=== PATIENT | male | born 1995 | race Caucasian/White ===

== ENCOUNTER 2018-07-03 23:44 | Emergency (ER) | payer SELFPAY ==
[2018-07-04] MEDS ORDERED: Famotidine IV* 10 MG/ML 2 ML (20 mg) IV SLOW PU ONE (00:16)
[2018-07-04] MEDS ORDERED: Ondansetron INJ* 2 MG/ML VIAL IV ONE (00:16)
[2018-07-04] MEDS ORDERED: NS 0.9% 1000 ML** 1,000 ML IV ONE (00:16)
--- NOTE | 2018-07-04 00:24 | ED ---
Complex/Multi-Sys Presentation - HPI Summary HPI Summary: 23-year-old male brought in by paramedics for complaint of possible overdose. They were called to the scene to find a patient unresponsive and affect neck with O2 sats around 30%. They provided 2 doses of Narcan with abrupt awakening. The patient is said nausea and vomiting since. He has regained normal consciousness and is alert and oriented on arrival to the ER. He had some confusion prior to this. He tells us that he had been drinking alcohol and used Xanax that he had obtained off the street. He states he does not normally do things like this that he normally uses cocaine instead. He denies any headache, chest pain or difficulty breathing. He reports persistent nausea and vomiting. He is able to move all his extremities normally. - History Of Current Complaint Chief Complaint: EDOverdose Time Seen by Provider: 07/03/18 23:55 Hx Obtained From: Patient, EMS Onset/Duration: Still Present Timing: Minutes Severity Currently: Mild Severity Initially: Severe Aggravating Factor(s): nothing Alleviating Factor(s): narcan Associated Signs And Symptoms: Positive: Nausea, Vomiting. Negative: Headache, Chest Pain, Abdominal Pain - Allergies/Home Medications Allergies/Adverse Reactions: Allergies Allergy/AdvReac Type Severity Reaction Status Date / Time No Known Allergies Allergy Verified 07/04/18 00:03 Home Medications: Home Medications NK [No Home Medications Reported] 07/04/18 [History Confirmed 07/04/18] PMH/Surg Hx/FS Hx/Imm Hx Psychiatric History: Reports: Hx Substance Abuse - Alexis. Infectious Disease History: No Infectious Disease History: Denies: Traveled Outside the [place] in Last 30 Days - Family History Known Family History: Positive: Non-Contributory - Social History Alcohol Use: Daily Substance Use Type: Reports: Cocaine, Heroin, Marijuana Smoking Status (MU): Heavy Every Day Tobacco Smoker Review of Systems Positive: Chills Eyes: Negative Cardiovascular: Negative Respiratory: Negative Positive: Vomiting, Nausea Negative: Headache, Weakness, Paresthesia, Numbness, Slurred Speech All Other Systems Reviewed And Are Negative: Yes Physical Exam Triage Information Reviewed: Yes Vital Signs On Initial Exam: Initial Vitals Temp Pulse Resp BP Pulse Ox 97.0 F 107 18 142/102 100 07/03/18 23:50 07/03/18 23:50 07/03/18 23:50 07/03/18 23:50 07/03/18 23:50 Vital Signs Reviewed: Yes Appearance: Positive: Ill-Appearing Skin: Positive: Warm, Dry, Other - abrasion on sternum Eyes: Positive: Other: - dilated pupils ENT: Positive: Pharynx normal Neck: Positive: Supple, Nontender Respiratory/Lung Sounds: Positive: Clear to Auscultation Cardiovascular: Positive: Tachycardia - She is Abdomen Description: Positive: Nontender - Heart, Soft Musculoskeletal: Positive: Normal, Strength/ROM Intact Neurological: Positive: Sensory/Motor Intact, Alert, Oriented to Person Place, Time Psychiatric: Positive: Normal Diagnostics - Vital Signs Vital Signs Temp Pulse Resp BP Pulse Ox 07/04/18 00:00 108 18 97 07/03/18 23:51 102 21 142/102 100 07/03/18 23:50 97.0 F 107 18 142/102 100 - Laboratory Lab Statement: Any lab studies that have been ordered have been reviewed, and results considered in the medical decision making process. Re-Evaluation - Re-Evaluation First Eval Change: Improved - no vomiting or nausea Complex Multi-Symp Course/Dx Course Of Treatment: Nurse's notes reviewed. The patient is alert and oriented here and has had some nausea and vomiting. He was treated with IV fluids, Zofran and warmed blankets. His symptoms all resolved. The patient was offered Narcan to go home with and has refused. He states he has never used opiate and even tonight he got this on accident. He states he normally uses cocaine. We have given him referral to outpatient drug and alcohol abuse resources. Nurse has also offered Narcan which he similarly refused. No neurologic symptoms. Nl gait. Safe ride arranged home. - Diagnoses Differential Diagnoses/HQI/PQRI: Other - anoxic injury, opiate w/d, opiate od Provider Diagnoses: Opiate or related narcotic overdose, Polysubstance abuse Discharge - Sign-Out/Discharge Documenting (check all that apply): Patient Departure Patient Received Moderate/Deep Sedation with Procedure: No - Discharge Plan Condition: Improved Disposition: HOME Patient Education Materials: Adult Overdose (ED) Referrals: [facility] [Outside] [facility] [Z.BUSINESS, APPLICATION, OTHER] - Additional Instructions: Do not use street drugs. You have been given handouts regarding local resources for drug and alcohol abuse. Never ingest anything that you're unsure what it is. Return if worse, new symptoms or other concerns. - Billing Disposition and Condition Condition: IMPROVED Disposition: Home
[2018-07-04] MEDS ORDERED: Ondansetron ODT TAB* 4 MG ONE (02:56)
[2018-07-04] MEDS ORDERED: Ondansetron ODT TAB* 4 MG PO ONE (02:56)
[2018-07-04 04:23] VITALS: BP 125/96
== END 2018-07-04 03:40 | disposition home or self-care (01) ==
LOC: ED 23:44
DX: T40.601A Poisoning by unspecified narcotics, accidental (unintentional), initial encounter (principal); F19.10 Other psychoactive substance abuse, uncomplicated; R11.2 Nausea with vomiting, unspecified; F17.210 Nicotine dependence, cigarettes, uncomplicated; Y92.9 Unspecified place or not applicable
CPT/HCPCS: 96365; 96366; 96367; 99283; A9270-GY; J2405